=== PATIENT | female | born 1960 | race Caucasian/White ===

== ENCOUNTER 2020-04-14 11:14 | Day surgery (SDC) | payer OTHER ==
[2020-04-06 16:21] VITALS: BMI 22.6
[2020-04-14] MEDS ORDERED: BUPIVACAINE HCL/PF 0.25% (2.5MG/ML) 10 ML VIAL ONE (12:30)
[2020-04-14] MEDS ORDERED: LIDOCAINE HCL 1%, 10 MG/ML (20ML VIAL) ONE (12:30)
[2020-04-14] MEDS ORDERED: KETOROLAC TROMETHAMINE 30 MG/1 ML VIAL IVPUSH PRN (12:38)
[2020-04-14] MEDS ORDERED: ONDANSETRON 4 MG/2 ML VIAL IVPUSH PRN ×2 (12:38→14:35)
[2020-04-14] MEDS ORDERED: DEXTROSE 5%-0.45% SALINE 1,000 ML IV SCH (12:45)
[2020-04-14] MEDS ORDERED: SUCCINYLCHOLINE CHLORIDE 200 MG/10 ML SYRINGE ONE (12:58)
[2020-04-14] MEDS ORDERED: MIDAZOLAM HCL 2 MG/2 ML SINGLE DOSE VIAL ONE (12:58)
[2020-04-14] MEDS ORDERED: PROPOFOL 20 ML ONE ×2 (12:58)
[2020-04-14] MEDS ORDERED: DEXAMETHASONE SOD PHOSPHATE 4 MG/1 ML VIAL ONE (13:36)
[2020-04-14] MEDS ORDERED: EPHEDRINE SULFATE/0.9% NACL/PF 50 MG/10 ML SYRINGE NR ONE (13:54)
[2020-04-14] MEDS ORDERED: ONDANSETRON 4 MG/2 ML VIAL ONE (14:32)
[2020-04-14] MEDS ORDERED: oxyCODONE HCL 5 MG TABLET PO PRN ×2 (14:35)
[2020-04-14] MEDS ORDERED: PROMETHAZINE HCL 25 MG/1 ML VIAL IVPB PRN (14:35)
[2020-04-14] MEDS ORDERED: PROMETHAZINE HCL 25 MG/1 ML VIAL ONE (14:58)
[2020-04-14] MEDS ORDERED: oxyCODONE HCL 5 MG TABLET ONE (15:09)
[2020-04-14 16:12] VITALS: BP 117/69; PULSE 76; TEMP 98
== END 2020-04-14 16:12 | disposition home or self-care (01) ==
LOC: FASU 11:14
PROVIDERS: ATTEND Surgery Surgical Oncology
PROC: 07B53ZX Excision of Right Axillary Lymphatic, Percutaneous Approach, Diagnostic (ICD-10-PCS; 2020-04-14)
PROC: BH40ZZZ Ultrasonography of Right Breast (ICD-10-PCS; 2020-04-14)
PROC: 0HB5XZX Excision of Chest Skin, External Approach, Diagnostic (ICD-10-PCS; 2020-04-14)
PROC: 0HBT3ZX Excision of Right Breast, Percutaneous Approach, Diagnostic (ICD-10-PCS; principal; 2020-04-14 13:20)
DX: C50.811 Malignant neoplasm of overlapping sites of right female breast (principal); C77.3 Secondary and unspecified malignant neoplasm of axilla and upper limb lymph nodes; Z17.0 Estrogen receptor positive status [ER+]; Z80.3 Family history of malignant neoplasm of breast; L90.5 Scar conditions and fibrosis of skin
CPT/HCPCS: 19083; 19084; 76942-TC; 88305-TC; 88342-TC; 94760; A4648

== ENCOUNTER 2022-04-05 11:11 | Day surgery (SDC) | payer OTHER ==
[2022-04-04 15:52] VITALS: BMI 21.7
[2022-04-05] MEDS ORDERED: PROPOFOL 20 ML ONE (14:08)
[2022-04-05] MEDS ORDERED: LIDOCAINE HCL/PF 2% SDV 5ML VIAL ONE (14:08)
[2022-04-05] MEDS ORDERED: DEXAMETHASONE SOD PHOSPHATE 4 MG/1 ML VIAL ONE (14:08)
[2022-04-05] MEDS ORDERED: ceFAZolin SODIUM 1 GM VIAL ONE ×2 (14:08→15:16)
[2022-04-05] MEDS ORDERED: ONDANSETRON 4 MG/2 ML VIAL ONE ×2 (14:08→18:48)
[2022-04-05] MEDS ORDERED: MIDAZOLAM HCL 2 MG/2 ML SINGLE DOSE VIAL ONE ×2 (14:11→16:36)
[2022-04-05] MEDS ORDERED: BUPIVACAINE HCL/PF 2.5 MG/ML - 30 ML VIAL IJ ONE (15:12)
[2022-04-05] MEDS ORDERED: ACETAMINOPHEN INJECTION 100 ML IVPB ONE (15:13)
[2022-04-05] MEDS ORDERED: GENTAMICIN SO4 80 MG/2 ML VIAL ONE (15:16)
[2022-04-05] MEDS ORDERED: BUPIVACAINE HCL/PF 0.25% (2.5MG/ML) 10 ML VIAL IJ ONE ×2 (16:21→16:38)
[2022-04-05] MEDS ORDERED: ACETAMINOPHEN 500 MG TABLET (FP) PO PRN (16:57)
[2022-04-05] MEDS ORDERED: FENTANYL CITRATE/PF 50 MCG/ML VIAL ONE (17:17)
[2022-04-05] MEDS ORDERED: ONDANSETRON 4 MG/2 ML VIAL IVPUSH PRN (17:23)
[2022-04-05] MEDS ORDERED: PROMETHAZINE HCL 25 MG/1 ML VIAL IVPUSH PRN (17:26)
[2022-04-05] MEDS ORDERED: HYDROmorphone HCL/PF 1 MG/ML VIAL ONE (17:43)
[2022-04-05] MEDS: HYDROmorphone HCL/PF 1 MG/ML VIAL IVPUSH ONE ×2 (17:47→18:08)
[2022-04-05] MEDS ORDERED: LACTATED RINGERS SOLUTION 1000 ML INFUS.BAG IV ONE (18:38)
[2022-04-05 22:35] VITALS: RESP 18
[2022-04-06 08:52] VITALS: BP 114/58; PULSE 87; TEMP 98.5
[2022-04-06] MEDS ORDERED: GABAPENTIN 400 MG CAPSULE PO SCH (10:00)
[2022-04-06] MEDS ORDERED: PANTOPRAZOLE 20 MG TABLET PO SCH (10:00)
[2022-04-06] MEDS ORDERED: VENLAFAXINE HCL 37.5 MG TABLET PO SCH (10:00)
[2022-04-06] MEDS ORDERED: EXEMESTANE 25 MG TABLET PO SCH ×3 (10:00)
[2022-04-06] MEDS ORDERED: LACTATED RINGERS SOLUTION 1000 ML INFUS.BAG IV ONE (18:38)
== END 2022-04-06 12:46 | disposition home or self-care (01) ==
LOC: FASU 11:11 → FASUSAT 11:11 → FM/S 19:15 → FASUSAT 04-06 12:46
PROVIDERS: ATTEND Surgery Plastic and Reconstructive Surgery
PROC: 0HUV07Z Supplement Bilateral Breast with Autologous Tissue Substitute, Open Approach (ICD-10-PCS; principal; 2022-04-05 15:49)
DX: Z85.3 Personal history of malignant neoplasm of breast (principal); Z98.82 Breast implant status; Z45.811 Encounter for adjustment or removal of right breast implant
CPT/HCPCS: 88300-TC; 88304-TC; 94760